=== PATIENT | female | born 1990 | race African-American/Black ===

== ENCOUNTER 2018-01-18 01:05 | Observation (INO) ==
[2018-01-18 03:42] LABS: Basophils # 0.1 10*3/uL (0.0-0.2); Basophils % 0.9 % (0.0-0.8); Eosinophils # 0.4 10*3/uL (0.0-0.87); Eosinophils % 4.3 % (0.00-10.9); Hematocrit 37.4 VOL% (35.7-47.0); Hemoglobin 11.7 GM/DL (12.0-16.0); Immature Granulocytes % 0.2 %; Immature Granulocytes Absolute 0.02 #; Lymphocytes # 3.4 10*3/uL (1.4-4.0); Lymphocytes % 39.3 % (21.3-54.2); Mean Corpuscular HGB Conc 31.3 GM/DL (32-36); Mean Corpuscular Hemoglobin 28 PG (27-34); Mean Corpuscular Volume 90.6 FL (87-102); Mean Platelet Volume 10.3 FL (9.6-12.0); Monocytes # 0.7 10*3/uL (0.11-0.8); Monocytes % 7.6 % (1.7-12.7); Neutrophils # 4.1 10*3/uL (1.4-7.4); Neutrophils % 47.7 % (38.7-73.9); Platelet Count 382 T/CUMM (130-400); Red Blood Count 4.13 MC/CUMM (3.8-5.5); White Blood Count 8.7 T/CUMM (4-12)
[2018-01-18 04:02] LABS: Apearance,Urine CLEAR (Clear); Bilirubin,Urine Negative (Negative); Blood, Urine Negative (Negative); Glucose,Urine (UA) Negative (Negative); Ketones,Urine Negative (Negative); Nitrite,Urine Negative (Negative); Protein,Urine Negative; RBC,Urine 1 /HPF (0-4); Squamous Epithelial Cell,Urine Occasional /HPF (0-10); Urine Color Straw (Yellow); Urine Specific Gravity 1.005 (1.001-1.035); Urine Urobilinogen < 2.0 EU/DL (0.2-1.0); WBC,Urine 3 /HPF (0-6)
[2018-01-18 04:06] LABS: Barbiturates Screen,Urine Negative (Negative); Benzodiazepines Screen,Urine Negative (Negative); Cannabinoid Screen,Urine Negative (Negative); Opiate Screen,Urine Negative (Negative); Phencyclidine Screen,Urine Negative (Negative)
[2018-01-18 05:39] LABS: Albumin 4.1 G/DL (3.4-5.0); Bilirubin,Total 0.7 MG/DL (0.2-1.0); Calcium 9.1 MG/DL (8.5-10.1); Osmolality,Calculated 277.3 MOS/KG (273-304); Potassium 4.2 MMOL/L (3.5-5.1); Total Protein 7.3 G/DL (6.4-8.3)
[2018-01-18] MEDS ORDERED: PROMETHAZINE 25 MG/1 ML VIAL IM PRN (08:54)
[2018-01-18] MEDS ORDERED: ONDANSETRON 4 MG/2 ML VIAL IV PRN (08:54)
[2018-01-18] MEDS ORDERED: KETOROLAC 30 MG/1 ML VIAL IV STA (09:10)
[2018-01-18 10:21] LABS: Folate 13.1 NG/ML (5.4-24.0)
[2018-01-18] MEDS ORDERED: INFLUENZA VIRUS VACCINE 0.5 ML SYRINGE IM ONE (10:30)
[2018-01-18] MEDS: SODIUM CHLORIDE 0.9% 1,000 ML IV SCH (10:43)
[2018-01-18] MEDS: ENOXAPARIN 40 MG/0.4 ML SYRINGE SUBCUT SCH (10:46)
[2018-01-18] MEDS: PANTOPRAZOLE 40 MG TABLET PO SCH (10:48)
[2018-01-18 15:46] LABS: % Iron Saturation 22.7 % (18-50); Thyroid Stimulating Hormone 2.51 uIU/ml (0.358-3.74)
[2018-01-18] MEDS: CYANOCOBALAMIN 1000 MCG/1 ML VIAL IM SCH (16:17)
[2018-01-19 05:24] LABS: Basophils # 0.1 10*3/uL (0.0-0.2); Basophils % 0.8 % (0.0-0.8); Eosinophils # 0.4 10*3/uL (0.0-0.87); Eosinophils % 5.6 % (0.00-10.9); Hematocrit 32.4 VOL% (35.7-47.0); Immature Granulocytes % 0.3 %; Immature Granulocytes Absolute 0.02 #; Lymphocytes # 3.4 10*3/uL (1.4-4.0); Lymphocytes % 44.1 % (21.3-54.2); Mean Corpuscular HGB Conc 30.9 GM/DL (32-36); Mean Corpuscular Hemoglobin 28 PG (27-34); Mean Corpuscular Volume 90.8 FL (87-102); Mean Platelet Volume 10.2 FL (9.6-12.0); Monocytes # 0.8 10*3/uL (0.11-0.8); Monocytes % 10.6 % (1.7-12.7); Neutrophils # 2.9 10*3/uL (1.4-7.4); Neutrophils % 38.6 % (38.7-73.9); Platelet Count 357 T/CUMM (130-400); Red Blood Count 3.57 MC/CUMM (3.8-5.5); Red Cell Distribution Width 13.9 % (9.3-17.3); White Blood Count 7.6 T/CUMM (4-12)
[2018-01-19 05:51] LABS: Albumin 2.9 G/DL (3.4-5.0); Bilirubin,Total 0.6 MG/DL (0.2-1.0); Calcium 8.3 MG/DL (8.5-10.1); Osmolality,Calculated 279.3 MOS/KG (273-304); Potassium 3.9 MMOL/L (3.5-5.1); Risk Ratio 2.16; Total Protein 5.9 G/DL (6.4-8.3)
[2018-01-19 05:59] LABS: Eosinophils 6 % (0-10); Lymphocytes 46 % (20-55); Myelocytes 2 %; Segmented Neutrophils 37 % (50-85); Total Cells Counted 100
[2018-01-19 06:00] LABS: Platelet Estimate Normal; Polychromasia Few
[2018-01-19] MEDS: SODIUM CHLORIDE 0.9% 1,000 ML IV SCH (06:53)
[2018-01-19] MEDS: ENOXAPARIN 40 MG/0.4 ML SYRINGE SUBCUT SCH (09:30)
[2018-01-19] MEDS: CYANOCOBALAMIN 1000 MCG/1 ML VIAL IM SCH (09:31)
[2018-01-19] MEDS: PANTOPRAZOLE 40 MG TABLET PO SCH (09:31)
[2018-01-19] MEDS ORDERED: KETOROLAC 15 MG/1 ML VIAL IV ONE (10:33)
[2018-01-19] MEDS ORDERED: BUTALBITAL/ACETAMIN/CAFFEINE 50-325-40 MG TABLET PO ONE (12:09)
[2018-01-19] MEDS ORDERED: CLORAZEPATE 3.75 MG TABLET PO ONE (12:09)
[2018-01-20] MEDS: ACETAMINOPHEN 325 MG TABLET PO PRN ×2 (02:46→09:43)
[2018-01-20 05:40] LABS: Basophils # 0.1 10*3/uL (0.0-0.2); Basophils % 0.9 % (0.0-0.8); Eosinophils # 0.6 10*3/uL (0.0-0.87); Eosinophils % 7.5 % (0.00-10.9); Hematocrit 32.7 VOL% (35.7-47.0); Hemoglobin 10.4 GM/DL (12.0-16.0); Immature Granulocytes % 0.1 %; Immature Granulocytes Absolute 0.01 #; Lymphocytes # 3.7 10*3/uL (1.4-4.0); Lymphocytes % 49.1 % (21.3-54.2); Mean Corpuscular HGB Conc 31.8 GM/DL (32-36); Mean Corpuscular Hemoglobin 29 PG (27-34); Mean Corpuscular Volume 89.6 FL (87-102); Mean Platelet Volume 10.4 FL (9.6-12.0); Monocytes # 0.8 10*3/uL (0.11-0.8); Monocytes % 9.9 % (1.7-12.7); Neutrophils # 2.5 10*3/uL (1.4-7.4); Neutrophils % 32.5 % (38.7-73.9); Platelet Count 377 T/CUMM (130-400); Red Blood Count 3.65 MC/CUMM (3.8-5.5); Red Cell Distribution Width 13.7 % (9.3-17.3); White Blood Count 7.6 T/CUMM (4-12)
[2018-01-20 06:01] LABS: Calcium 8.9 MG/DL (8.5-10.1); Potassium 3.7 MMOL/L (3.5-5.1)
[2018-01-20 06:10] LABS: Eosinophils 8 % (0-10); Lymphocytes 58 % (20-55); Metamyelocytes 1 %; Platelet Estimate Normal; Segmented Neutrophils 29 % (50-85); Total Cells Counted 100
[2018-01-20 06:11] LABS: Hypochromasia Slight
[2018-01-20] MEDS: SODIUM CHLORIDE 0.9% 1,000 ML IV SCH ×3 (07:19→19:56)
[2018-01-20] MEDS: PANTOPRAZOLE 40 MG TABLET PO SCH (09:43)
[2018-01-20] MEDS: ENOXAPARIN 40 MG/0.4 ML SYRINGE SUBCUT SCH (09:46)
[2018-01-20] MEDS: CYANOCOBALAMIN 1000 MCG/1 ML VIAL IM SCH (09:48)
[2018-01-20] MEDS ORDERED: SUMAtriptan 25 MG TABLET PO PRN (10:08)
[2018-01-20] MEDS: BUTALBITAL/ACETAMIN/CAFFEINE 50-325-40 MG TABLET PO PRN (19:52)
[2018-01-21 04:59] LABS: Basophils # 0.1 10*3/uL (0.0-0.2); Basophils % 1.2 % (0.0-0.8); Eosinophils # 0.5 10*3/uL (0.0-0.87); Eosinophils % 6.6 % (0.00-10.9); Hematocrit 33.7 VOL% (35.7-47.0); Hemoglobin 10.3 GM/DL (12.0-16.0); Immature Granulocytes % 0.3 %; Immature Granulocytes Absolute 0.02 #; Lymphocytes # 3.6 10*3/uL (1.4-4.0); Lymphocytes % 51.7 % (21.3-54.2); Mean Corpuscular HGB Conc 30.6 GM/DL (32-36); Mean Corpuscular Hemoglobin 28 PG (27-34); Mean Corpuscular Volume 90.8 FL (87-102); Mean Platelet Volume 10.5 FL (9.6-12.0); Monocytes # 0.8 10*3/uL (0.11-0.8); Monocytes % 11.2 % (1.7-12.7); Platelet Count 380 T/CUMM (130-400); Red Blood Count 3.71 MC/CUMM (3.8-5.5); Red Cell Distribution Width 13.7 % (9.3-17.3); White Blood Count 6.9 T/CUMM (4-12)
[2018-01-21 05:16] LABS: Calcium 8.6 MG/DL (8.5-10.1); Osmolality,Calculated 277.3 MOS/KG (273-304); Potassium 4.2 MMOL/L (3.5-5.1)
[2018-01-21 06:26] LABS: Eosinophils 8 % (0-10); Hypochromasia 2+; Lymphocytes 52 % (20-55); Platelet Estimate Normal; Segmented Neutrophils 34 % (50-85); Total Cells Counted 100
[2018-01-21] MEDS: SODIUM CHLORIDE 0.9% 1,000 ML IV SCH ×2 (08:45→21:46)
[2018-01-21] MEDS: PANTOPRAZOLE 40 MG TABLET PO SCH ×2 (09:17→13:42)
[2018-01-21] MEDS: CYANOCOBALAMIN 1000 MCG/1 ML VIAL IM SCH (09:18)
[2018-01-21 10:32] LABS: Appearance,CSF Clear; Lymphocytes,CSF 79 %; Monocytes,CSF 21 %; Red Blood Cell,CSF < 1 C/CUMM; White Blood Cell,CSF 26 C/CUMM
[2018-01-21 10:34] LABS: Glucose,CSF 53 MG/DL (40-70)
[2018-01-21] MEDS ORDERED: CYANOCOBALAMIN 1000 MCG/1 ML VIAL IM SCH (13:35)
[2018-01-21] MEDS: ACETAMINOPHEN 325 MG TABLET PO PRN (19:54)
[2018-01-22] MEDS: ACETAMINOPHEN 325 MG TABLET PO PRN (01:06)
[2018-01-22] MEDS: ENOXAPARIN 40 MG/0.4 ML SYRINGE SUBCUT SCH (09:03)
[2018-01-22] MEDS: BUTALBITAL/ACETAMIN/CAFFEINE 50-325-40 MG TABLET PO PRN (09:03)
[2018-01-22] MEDS: PANTOPRAZOLE 40 MG TABLET PO SCH (09:03)
[2018-01-22 09:07] LABS: HIV Antigen/Antibody Result Nonreactive (Nonreactive)
[2018-01-22 11:55] VITALS: BP 133/77
[2018-01-24 14:21] LABS: CMV PCR Source CSF; Epstein-Barr Virus Result Negative (Negative); Epstein-Barr Virus Source CSF
== END 2018-01-22 11:58 | disposition home or self-care (01) ==
LOC: N.ED 01:05 → N.EDINP 01:05 → N.2W 09:34 → N.5E 13:52
PROVIDERS: ADMIT Internal Medicine; ATTEND Internal Medicine